=== PATIENT | male | born 1975 | race Caucasian/White ===

== ENCOUNTER → 2016-11-22 | Outpatient (CLI) | payer OTHER ==
--- NOTE | 2016-11-22 14:53 | MR ---
EXAMINATION TYPE: MR thoracic spine wo con DATE OF EXAM: 11/22/2016 COMPARISON: NONE HISTORY: 41-year-old male pain thoracic spine TECHNIQUE: Multiplanar, multisequence images of the thoracic spine were obtained without IV contrast. FINDINGS: There is minimal disc desiccation from T7 through T10 levels. No focal disc herniation or significant disc space narrowing. There is mild facet arthropathy in the upper thoracic spine causing mild narrowing of the right T1-T2 neuroforamen. Vertebral body heights are preserved and alignment is maintained. There is normal course, caliber, and signal intensity of the thoracic cord. Conus medullaris is tammie l. No significant spinal canal stenosis. No neuroforaminal compromise. No prevertebral or paravertebral soft tissue abnormality seen. IMPRESSION: Minimal early disc desiccation in the lower thoracic spine. There is also minimal facet arthropathy i n the upper thoracic spine. No focal disc herniation or significant spinal canal or neural foraminal stenosis.
== END | disposition home or self-care (01) ==
LOC: RADMRIMAIN 11:50
PROVIDERS: ATTEND Family Medicine
DX: M51.34 Other intervertebral disc degeneration, thoracic region (principal); M46.84 Other specified inflammatory spondylopathies, thoracic region
CPT/HCPCS: 72146

== ENCOUNTER 2020-09-01 15:12 | Inpatient (IN) | payer OTHER ==
[2020-09-01] MEDS ORDERED: SODIUM CHLORIDE 0.9% 500 ML 500 ML IV STA (15:33)
--- NOTE | 2020-09-01 15:51 | ED ---
General Adult HPI - General Chief complaint: Shortness of Breath Stated complaint: SOB Time Seen by Provider: 09/01/20 15:18 Source: patient, RN notes reviewed, old records reviewed Mode of arrival: wheelchair Limitations: no limitations - History of Present Illness Initial comments: 45 yo male presenting for evaluation of cough and dyspnea. Patient was diagnosed with coronavirus approximately 3 weeks ago. He has had persistent cough and dyspnea throughout and was sent in by his primary care physician today for rule out pulmonary embolism. He does deny current fevers. He states he's had persistent nausea and vomiting as well as diarrhea. He also complains of left calf pain. - Related Data Home Medications Medication Instructions Recorded Confirmed Albuterol Inhaler [Ventolin Hfa 2 puff INHALATION RT-Q4H 09/01/20 09/01/20 Inhaler] Atorvastatin [Lipitor] 20 mg PO HS 09/01/20 09/01/20 Fluticasone Propionate [Flovent 2 puff INHALATION RT-BID 09/01/20 09/01/20 Hfa 44 mcg] lisinopriL 20 mg PO BID 09/01/20 09/01/20 Allergies Allergy/AdvReac Type Severity Reaction Status Date / Time naproxen [From Naprosyn] Allergy LIPS NUMB Verified 09/01/20 16:52 Review of Systems ROS Statement: Those systems with pertinent positive or pertinent negative responses have been documented in the HPI. ROS Other: All systems not noted in ROS Statement are negative. Past Medical History Past Medical History: No Reported History Additional Past Medical History / Comment(s): Covid 08/13/20 History of Any Multi-Drug Resistant Organisms: None Reported Past Surgical History: No Surgical Hx Reported Past Psychological History: No Psychological Hx Reported Smoking Status: Never smoker Past Alcohol Use History: None Reported Past Drug Use History: None Reported General Exam Limitations: no limitations General appearance: alert, in no apparent distress Head exam: Present: atraumatic, normocephalic Eye exam: Present: normal appearance, PERRL ENT exam: Present: normal exam Neck exam: Present: normal inspection, tenderness. Absent: meningismus Respiratory exam: Present: normal lung sounds bilaterally. Absent: respiratory distress, wheezes, rales Cardiovascular Exam: Present: regular rate, normal rhythm GI/Abdominal exam: Present: soft. Absent: distended, tenderness, guarding, rebound Extremities exam: Present: normal inspection, normal capillary refill. Absent: calf tenderness Back exam: Present: normal inspection Neurological exam: Present: alert, oriented X3, CN II-XII intact. Absent: motor sensory deficit Psychiatric exam: Present: normal affect, normal mood Skin exam: Present: warm, dry, intact. Absent: cyanosis, diaphoretic Course Vital Signs 09/01/20 09/01/20 09/01/20 15:12 16:00 16:02 Temperature 98.3 F Pulse Rate 106 H 96 86 Respiratory 22 23 18 Rate Blood Pressure 147/53 124/79 O2 Sat by Pulse 98 96 97 Oximetry 09/01/20 16:30 Temperature Pulse Rate 98 Respiratory 23 Rate Blood Pressure 120/83 O2 Sat by Pulse 99 Oximetry - Reevaluation(s) Reevaluation #1: 09/01/20 16:53 Ultrasound of the left leg pending, echo has been ordered and results pending. EKG Findings - EKG Comments: EKG Findings:: EKG: Normal sinus rhythm, rate of 87, ND interval 150, QRS duration 82, QTC 447, no ST segment elevation, there is T-wave inversion in lead 3. Medical Decision Making - Medical Decision Making 45-year-old male with dyspnea, sent in by primary care physician for rule out pulmonary embolism. Patient does receive CT angiography which shows a moderate burden of pulmonary emboli. Bilateral. Patient has normal CBC, normal CMP, negative troponin. Echo has been ordered in addition to the left leg ultrasound. Patient started on high-dose heparin. He will be admitted to internal medicine with pulmonology and vascular surgery on consult. - Lab Data Result diagrams: 09/01/20 15:39 09/01/20 15:39 Lab Results 09/01/20 09/01/20 09/01/20 Range/Units 15:39 15:39 15:39 WBC 9.6 (3.8-10.6) k/uL RBC 5.40 (4.30-5.90) m/uL Hgb 16.4 (13.0-17.5) gm/dL Hct 47.1 (39.0-53.0) % MCV 87.1 (80.0-100.0) fL MCH 30.3 (25.0-35.0) pg MCHC 34.8 (31.0-37.0) g/dL RDW 13.1 (11.5-15.5) % Plt Count 291 (150-450) k/uL MPV 6.6 Neutrophils % 73 % Lymphocytes % 17 % Monocytes % 7 % Eosinophils % 2 % Basophils % 1 % Neutrophils # 7.0 (1.3-7.7) k/uL Lymphocytes # 1.6 (1.0-4.8) k/uL Monocytes # 0.7 (0-1.0) k/uL Eosinophils # 0.2 (0-0.7) k/uL Basophils # 0.1 (0-0.2) k/uL PT 10.3 (9.0-12.0) sec INR 1.0 (<1.2) APTT 23.4 (22.0-30.0) sec Sodium 138 (137-145) mmol/L Potassium 4.3 (3.5-5.1) mmol/L Chloride 105 (98-107) mmol/L Carbon Dioxide 23 (22-30) mmol/L Anion Gap 10 mmol/L BUN 16 (9-20) mg/dL Creatinine 0.84 (0.66-1.25) mg/dL Est GFR (CKD-EPI)AfAm >90 (>60 ml/min/1.73 sqM) Est GFR (CKD-EPI)NonAf >90 (>60 ml/min/1.73 sqM) Glucose 94 (74-99) mg/dL Calcium 9.5 (8.4-10.2) mg/dL Total Bilirubin 0.6 (0.2-1.3) mg/dL AST 36 (17-59) U/L ALT 47 (4-49) U/L Alkaline Phosphatase 122 (38-126) U/L Troponin I (0.000-0.034) ng/mL Total Protein 7.7 (6.3-8.2) g/dL Albumin 4.4 (3.5-5.0) g/dL 09/01/20 Range/Units 15:39 WBC (3.8-10.6) k/uL RBC (4.30-5.90) m/uL Hgb (13.0-17.5) gm/dL Hct (39.0-53.0) % MCV (80.0-100.0) fL MCH (25.0-35.0) pg MCHC (31.0-37.0) g/dL RDW (11.5-15.5) % Plt Count (150-450) k/uL MPV Neutrophils % % Lymphocytes % % Monocytes % % Eosinophils % % Basophils % % Neutrophils # (1.3-7.7) k/uL Lymphocytes # (1.0-4.8) k/uL Monocytes # (0-1.0) k/uL Eosinophils # (0-0.7) k/uL Basophils # (0-0.2) k/uL PT (9.0-12.0) sec INR (<1.2) APTT (22.0-30.0) sec Sodium (137-145) mmol/L Potassium (3.5-5.1) mmol/L Chloride (98-107) mmol/L Carbon Dioxide (22-30) mmol/L Anion Gap mmol/L BUN (9-20) mg/dL Creatinine (0.66-1.25) mg/dL Est GFR (CKD-EPI)AfAm (>60 ml/min/1.73 sqM) Est GFR (CKD-EPI)NonAf (>60 ml/min/1.73 sqM) Glucose (74-99) mg/dL Calcium (8.4-10.2) mg/dL Total Bilirubin (0.2-1.3) mg/dL AST (17-59) U/L ALT (4-49) U/L Alkaline Phosphatase (38-126) U/L Troponin I <0.012 (0.000-0.034) ng/mL Total Protein (6.3-8.2) g/dL Albumin (3.5-5.0) g/dL Critical Care Time Critical Care Time: Yes Total Critical Care Time: 35 Disposition Clinical Impression: Pulmonary embolism Disposition: ADMITTED IP TO THIS [facility] Condition: Stable Is patient prescribed a controlled substance at d/c from ED?: No Referrals: Dex Landon DO [Primary Care Provider] - 1-2 days Decision to Admit Reason: Admit from EC Decision Date: 09/01/20 Decision Time: 16:55
[2020-09-01 15:53] LABS: Basophils # (A) 0.1 k/uL (0-0.2); Basophils % (A) 1 %; Eosinophils # (A) 0.2 k/uL (0-0.7); Eosinophils % (A) 2 %; HCT 47.1 % (39.0-53.0); HGB 16.4 gm/dL (13.0-17.5); Lymphocytes # (A) 1.6 k/uL (1.0-4.8); Lymphocytes % (A) 17 %; MCH 30.3 pg (25.0-35.0); MCHC 34.8 g/dL (31.0-37.0); MCV 87.1 fL (80.0-100.0); Mean Platelet Volume 6.6; Monocytes # (A) 0.7 k/uL (0-1.0); Monocytes % (A) 7 %; Neutrophils % (A) 73 %; Platelet Count 291 k/uL (150-450); RDW 13.1 % (11.5-15.5); WBC 9.6 k/uL (3.8-10.6)
[2020-09-01 16:08] LABS: Partial Thromboplastin Time 23.4 sec (22.0-30.0); Prothrombin Time 10.3 sec (9.0-12.0)
[2020-09-01 16:10] LABS: ALT 47 U/L (4-49); AST 36 U/L (17-59); African American GFR (CKD) >90 (>60 ml/min/1.73 sqM); Albumin 4.4 g/dL (3.5-5.0); Alkaline Phosphatase 122 U/L (38-126); Anion Gap 10 mmol/L; Blood Urea Nitrogen 16 mg/dL (9-20); Calcium 9.5 mg/dL (8.4-10.2); Carbon Dioxide 23 mmol/L (22-30); Chloride 105 mmol/L (98-107); Glucose 94 mg/dL (74-99); Non-African American GFR(CKD) >90 (>60 ml/min/1.73 sqM); Potassium 4.3 mmol/L (3.5-5.1); Sodium 138 mmol/L (137-145); Total Bilirubin 0.6 mg/dL (0.2-1.3); Total Protein 7.7 g/dL (6.3-8.2)
[2020-09-01] MEDS ORDERED: HEPARIN SODIUM 1,000 UN/ML (10ML VL) IV ONE (16:43)
[2020-09-01] MEDS ORDERED: HEPARIN SODIUM 1,000 UN/ML (10ML VL) IV PRN (16:43)
--- NOTE | 2020-09-01 16:43 | CT ---
EXAMINATION TYPE: CT angio chest DATE OF EXAM: 09/01/2020 COMPARISON: None HISTORY: 45-year-old male Shortness of breath, assess for PE. TECHNIQUE: Contiguous axial scanning of the chest performed with IV Contrast, patient injected with 1 00 mL of Isovue 370. Coronal/sagittal MIP reconstructions performed. CT DLP: 612.3 mGycm Automated exposure control for dose reduction was used. FINDINGS: Heart normal size without pericardial effusion. No flattening of the interventricular septum or reflu x of contrast into the hepatic veins. Aorta normal caliber with conventional branching anatomy. A few nonenlarged and borderline-sized mediastinal lymph nodes measuring up to 1 cm. Exam is positive for bilateral pulmonary emboli involving lobar, segmental, subsegmental branches of the left lower lobe and also the lingula. Also involved are branches throughout the right lower lobe. Very minimal patchy peripheral groundglass changes anterior left midlung and periphery of the left lo wer lobe. There is a trace left effusion and more focal subpleural masslike opacity measuring 2.3 cm the peripheral left base. Nonspecific 5 mm right lower lung pulmonary nodule, axial image 60. Visualized upper abdomen shows no gross abnormality. Bones: No osseous destructive process. IMPRESSION: 1. EXAM POSITIVE FOR PULMONARY EMBOLI WITH MODERATE OVERALL BURDEN EXTENDING THROUGH LOBAR AND MORE D ISTAL ARTERIAL BRANCHES OF THE BILATERAL LOWER LOBES AND LINGULA. NO CT EVIDENCE OF RIGHT HEART STRAI N AT THIS TIME. 2. A MASSLIKE SUBPLEURAL OPACITY AT THE LEFT BASE MEASURES 2.3 CM. KOEHLER'S HUMP/PULMONARY INFARCT I S SUSPECTED. FOLLOW-UP IN 3 MONTHS TO REASSESS. THE 5 MM RIGHT LOWER LUNG PULMONARY NODULE SHOULD ALS O BE REASSESSED AT THAT TIME. 3. SOME MINIMAL PATCHY PERIPHERAL GROUNDGLASS ANTERIOR LEFT MIDLUNG AND PERIPHERAL LEFT LOWER LOBE. F INDINGS MAY REFLECT EARLY OR RESIDUAL COVID PNEUMONIA CHANGES. ADDITIONAL TRACE LEFT EFFUSION. Clinical findings called to Dr. Prado in the ER at 4:38 PM.
[2020-09-01] MEDS ORDERED: NALOXONE 0.4 MG/ML 1 ML VIAL IV PRN (16:52)
[2020-09-01] MEDS ORDERED: ACETAMINOPHEN TAB 325 MG TAB PO PRN (16:52)
[2020-09-01] MEDS: HEPARIN SOD,PORK IN 0.45% NACL 25,000 UNIT in 0.45% NACL 1 250ML.BAG IV SCH (16:57)
[2020-09-01] MEDS: SODIUM CHLORIDE 0.9% 1,000 ML IV SCH (17:05)
--- NOTE | 2020-09-01 17:30 | US ---
EXAMINATION TYPE: US venous doppler duplex LE LT DATE OF EXAM: 09/01/2020 5:13 PM COMPARISON: None CLINICAL HISTORY: DVT?. Recent Covid x few weeks ago. PE. Calf pain radiating to thigh. No redness or swelling. SIDE PERFORMED: Left TECHNIQUE: The lower extremity deep venous system is examined utilizing real time linear array sonog jamarcus with graded compression, doppler sonography and color-flow sonography. VESSELS IMAGED: Common Femoral Vein Deep Femoral Vein Greater Saphenous Vein * Femoral Vein Popliteal Vein (* superficial vessels) Left Leg: The common femoral vein, deep femoral vein, and greater saphenous vein are patent and comp ressible. There is incompletely occlusive deep venous thrombosis of the proximal, mid, and distal fem oral vein. There appears to be a duplicated popliteal vein, one of which demonstrates incompletely oc clusive deep venous thrombosis. The other popliteal vein appears patent. IMPRESSION: Incompletely occlusive DVT of the left femoral vein and popliteal vein as above.
--- NOTE | 2020-09-01 18:31 | P.GSCN ---
History of Present Illness Consult date: 09/01/20 History of present illness: León is a 45-year-old male who is essentially otherwise healthy who was diagnosed with coronavirus approximately 3 weeks ago. He has been feeling very weak overall having some issues with pain with deep inspiration as well as shortness of breath. He also complains of some leg pain in his left lower extremity. He denies any previous histories of blood clot that he is aware of. He denies any long travel, previous surgeries or traumas. Past Medical History Past Medical History: No Reported History Additional Past Medical History / Comment(s): Covid 08/13/20 History of Any Multi-Drug Resistant Organisms: None Reported Past Surgical History: No Surgical Hx Reported Past Psychological History: No Psychological Hx Reported Smoking Status: Never smoker Past Alcohol Use History: None Reported Past Drug Use History: None Reported Medications and Allergies Home Medications Medication Instructions Recorded Confirmed Type Albuterol Inhaler [Ventolin Hfa 2 puff INHALATION RT-Q4H 09/01/20 09/01/20 History Inhaler] Atorvastatin [Lipitor] 20 mg PO HS 09/01/20 09/01/20 History Fluticasone Propionate [Flovent 2 puff INHALATION RT-BID 09/01/20 09/01/20 History Hfa 44 mcg] lisinopriL 20 mg PO BID 09/01/20 09/01/20 History Allergies Allergy/AdvReac Type Severity Reaction Status Date / Time naproxen [From Naprosyn] Allergy LIPS NUMB Verified 09/01/20 16:52 Surgical - Exam Vital Signs Temp Pulse Resp BP Pulse Ox 98.3 F 106 H 22 147/53 98 09/01/20 15:12 09/01/20 15:12 09/01/20 15:12 09/01/20 15:12 09/01/20 15:12 Gen. is a pleasant cooperative male in no acute distress. Resting comfortably. Breathing room air. HEENT is normocephalic, atraumatic, extraocular motion intact. Neck is supple. Trachea is midline. Heart is tachycardic but regular otherwise. Lungs are clear bilaterally. Abdomen is soft, obese, nontender nondistended. Extremity show no clubbing cyanosis or significant edema. He has trouble radial, femoral and dorsalis pedis pulses bilaterally. Normal mood and affect. Cranial nerves II through XII grossly intact. Results CT angiogram of the chest is reviewed. Moderate distal embolic burden in the bilateral pulmonary arteries. No evidence of right heart strain as visualized on computed tomography scan. Ultrasound of the left lower extremity is reviewed. - Labs 09/01/20 15:39 09/01/20 15:39 Diabetes panel 09/01/20 Range/Units 15:39 Sodium 138 (137-145) mmol/L Potassium 4.3 (3.5-5.1) mmol/L Chloride 105 (98-107) mmol/L Carbon Dioxide 23 (22-30) mmol/L BUN 16 (9-20) mg/dL Creatinine 0.84 (0.66-1.25) mg/dL Glucose 94 (74-99) mg/dL Calcium 9.5 (8.4-10.2) mg/dL AST 36 (17-59) U/L ALT 47 (4-49) U/L Alkaline Phosphatase 122 (38-126) U/L Total Protein 7.7 (6.3-8.2) g/dL Albumin 4.4 (3.5-5.0) g/dL Calcium panel 09/01/20 Range/Units 15:39 Calcium 9.5 (8.4-10.2) mg/dL Albumin 4.4 (3.5-5.0) g/dL Pituitary panel 09/01/20 Range/Units 15:39 Sodium 138 (137-145) mmol/L Potassium 4.3 (3.5-5.1) mmol/L Chloride 105 (98-107) mmol/L Carbon Dioxide 23 (22-30) mmol/L BUN 16 (9-20) mg/dL Creatinine 0.84 (0.66-1.25) mg/dL Glucose 94 (74-99) mg/dL Calcium 9.5 (8.4-10.2) mg/dL Adrenal panel 09/01/20 Range/Units 15:39 Sodium 138 (137-145) mmol/L Potassium 4.3 (3.5-5.1) mmol/L Chloride 105 (98-107) mmol/L Carbon Dioxide 23 (22-30) mmol/L BUN 16 (9-20) mg/dL Creatinine 0.84 (0.66-1.25) mg/dL Glucose 94 (74-99) mg/dL Calcium 9.5 (8.4-10.2) mg/dL Total Bilirubin 0.6 (0.2-1.3) mg/dL AST 36 (17-59) U/L ALT 47 (4-49) U/L Alkaline Phosphatase 122 (38-126) U/L Total Protein 7.7 (6.3-8.2) g/dL Albumin 4.4 (3.5-5.0) g/dL Assessment and Plan Assessment: Bilateral pulmonary embolism Left lower extremity DVT Recent COVID diagnosis Plan: At this time the patient is on heparin which should be continued. The echo is pending. He does not have any elevation of his troponins nor any features of significant right heart strain on computed tomography scan. If normal-appearing echocardiogram, he may be transitioned over to oral anticoagulation within the next 24-48 hours and checked for coverage. No restrictions from my standpoint. Activity as tolerated.
[2020-09-02] MEDS ORDERED: ALBUTEROL HFA INHALER INHALATION SCH
[2020-09-02] MEDS: HEPARIN SOD,PORK IN 0.45% NACL 25,000 UNIT in 0.45% NACL 1 250ML.BAG IV SCH (06:56)
[2020-09-02] MEDS: ALBUTEROL HFA INHALER INHALATION SCH ×4 (08:15→21:24)
[2020-09-02] MEDS: FAMOTIDINE 20 MG/2 ML VIAL IV SCH ×2 (08:39→20:40)
[2020-09-02] MEDS: lisinopriL 20 MG TAB PO SCH (08:39)
[2020-09-02] MEDS: FLUTICASONE 44 MCG INHALER INHALATION SCH ×2 (08:41→21:25)
[2020-09-02 09:14] LABS: Basophils # (A) 0.1 k/uL (0-0.2); Basophils % (A) 1 %; Eosinophils # (A) 0.1 k/uL (0-0.7); Eosinophils % (A) 2 %; HGB 15.2 gm/dL (13.0-17.5); Lymphocytes # (A) 1.9 k/uL (1.0-4.8); Lymphocytes % (A) 23 %; MCH 29.5 pg (25.0-35.0); MCHC 33.7 g/dL (31.0-37.0); MCV 87.6 fL (80.0-100.0); Mean Platelet Volume 6.5; Monocytes # (A) 0.6 k/uL (0-1.0); Monocytes % (A) 8 %; Neutrophils # (A) 5.6 k/uL (1.3-7.7); Neutrophils % (A) 66 %; Platelet Count 271 k/uL (150-450); RBC 5.14 m/uL (4.30-5.90); WBC 8.5 k/uL (3.8-10.6)
[2020-09-02 09:19] VITALS: BMI 40.8
--- NOTE | 2020-09-02 16:56 | P.CNPUL ---
History of Present Illness Consult date: 09/02/20 Requesting physician: Bernard Ricardo Reason for consult: pulmonary embolism Chief complaint: Shortness of breath History of present illness: This is a 45-year-old white male diagnosed with dillon virus infection about 3 weeks ago. Patient had follow-up with his primary care physician, and he was complaining of persistent shortness of breath. Patient underwent CT angiogram of the chest upon presentation to the ER, and he was found to have bilateral pulmonary embolism. Patient was admitted and this consult was initiated. CT of the chest continued to show very minimal patchy peripheral groundglass changes quite consistent with recent COVID-19 pneumonia. There was also evidence of tr ellis of left effusion. Clinically the patient is complaining of shortness of breath on exertion, intermittent cough, no wheezing, no fever, no chills, no hemoptysis, most of his symptoms related to COVID-19 infection has resolved except for cough. Patient is receiving heparin, and I will go ahead and transition the patient to Xarelto, possibly discharging the patient home in the next 24 hours. Review of Systems Constitutional: Negative Cardiac: Negative Pulmonary: As noted in HPI. GI: Negative Genitourinary: Negative Muscular skeletal: Negative Skin: Negative Urologic: Negative Endocrine: Negative Hematologic: No previous history of hypercoagulable state DVT or thrombus embolic disease. No clotting bleeding or bruising in the past. Psychiatric: Negative Neurologic: Negative. Past Medical History Past Medical History: Hypertension Additional Past Medical History / Comment(s): Covid 08/13/20 History of Any Multi-Drug Resistant Organisms: None Reported Past Surgical History: No Surgical Hx Reported Past Anesthesia/Blood Transfusion Reactions: No Reported Reaction Past Psychological History: No Psychological Hx Reported Smoking Status: Never smoker Past Alcohol Use History: None Reported Past Drug Use History: None Reported - Past Family History Mother Family Medical History: Cancer Medications and Allergies Home Medications Medication Instructions Recorded Confirmed Type Albuterol Inhaler [Ventolin Hfa 2 puff INHALATION RT-Q4H 09/01/20 09/01/20 History Inhaler] Atorvastatin [Lipitor] 20 mg PO HS 09/01/20 09/01/20 History Fluticasone Propionate [Flovent 2 puff INHALATION RT-BID 09/01/20 09/01/20 History Hfa 44 mcg] lisinopriL 20 mg PO BID 09/01/20 09/01/20 History Rivaroxaban [Xarelto Starter Pack] 0 mg PO DIRECTED 30 Days #1 pack 09/02/20 Rx Allergies Allergy/AdvReac Type Severity Reaction Status Date / Time naproxen [From Naprosyn] Allergy LIPS NUMB Verified 09/01/20 16:52 Physical Exam Vitals: Vital Signs Temp Pulse Pulse Resp BP BP Pulse Ox 09/02/20 14:00 16 09/02/20 12:00 98.2 F 72 16 118/72 95 09/02/20 08:00 98.4 F 79 16 120/70 94 L 09/02/20 04:00 98.5 F 70 16 117/76 96 09/02/20 00:00 98.3 F 77 16 127/79 98 09/01/20 23:59 98.2 F 77 16 127/79 98 09/01/20 22:38 75 18 101/64 98 09/01/20 18:15 101 H 18 120/85 98 Intake and Output 09/02/20 09/02/20 09/02/20 06:59 14:59 22:59 Intake Total 238.409 315 Output Total 200 900 200 Balance 38.409 -585 -200 Intake: Intake, IV Titration 238.409 Amount Heparin Sod,Pork in 0.45% 238.409 NaCl 25,000 unit In 0.45 % NaCl 1 250ml.bag @ 18 UNITS/KG/HR 19.84 mls/hr IV .[id number] [facility] Rx#: [id number] Oral 315 Output: Urine 200 900 200 Other: Voiding Method Toilet Toilet # Voids 1 # Bowel Movements 1 Weight 111.5 kg 111.5 kg Physical Exam: Revealed a 45-year-old white male in no distress. Head: Atraumatic, normocephalic. HEENT:[Neck is supple.] [No neck masses.] [No thyromegaly.] [No JVD.] Chest: [Clear throughout, no crackles, no rhonchi, no wheezes.] Cardiac Exam: [Normal S1 and S2, no S3 gallop, no murmur.] Abdomen: [Soft, nontender, no megaly, no rebound, no guarding, normal bowel sounds.] Extremities: [No clubbing, no edema, no cyanosis.] Minimal tenderness noted in the left lower extremity just above the left knee. Neurological Exam: [No focal neurologic deficit.] Alert and oriented 3. Psychiatric: Normal mood affect and normal mental status examination. Skin: No rashes. Pharynx: No lymphadenopathy. Results - Laboratory Findings CBC and BMP: 09/02/20 08:43 09/01/20 15:39 PT/INR, D-dimer PT 10.3 sec (9.0-12.0) 09/01/20 15:39 INR 1.0 (<1.2) 09/01/20 15:39 Abnormal lab findings: Abnormal Labs 09/01/20 09/02/20 22:51 08:43 APTT 117.4 H* 51.1 H - Diagnostic Findings CT scan - chest: image reviewed Additional studies: Venous Doppler is also positive for left lower extremity DVT involving the left femoral vein and popliteal vein. Assessment and Plan Assessment: Impression: Acute pulmonary embolism Acute left lower extremity DVT involving left femoral vein and popliteal vein Recent history of COVID-19 pneumonia Hypercoagulable state, mostly provoked by recent COVID-19 infection. History of asthma mild intermittent. History of hypertension Recommendation: ,Transition patient to Xarelto 15 mg twice a day for 21 days then 20 mg daily and he should take it for at least 3-6 months. Resume home meds. Consider discharge planning in the next 24 hours. Follow-up on outpatient basis. Time with Patient: Greater than 30
--- NOTE | 2020-09-02 17:25 | P.HPIM ---
History of Present Illness H&P Date: 09/02/20 Chief Complaint: left leg pain and difficulty in breathing Mr. Sam is a 45-year-old male with the past medical history of hypertension and recently diagnosed with coronal virus infection 3 weeks back coming in to the ER as he was sent by his PCP for persistent difficulty in breathing and left lower extremity pain. Patient states that he has been having pain in his left calf for the past 2-3 days. He was also having some difficulty in breathing with activity. Patient also noticed bloody sputum, streaks of blood 3-4 times in his sputum. He denies having any clots but said streaks of blood. He thought it might be because of his recent covid infection. In the ER patient had a CAT scan of the chest showing bilateral pneumonia showing minimal patchy peripheral groundglass changes along with trace left effusion. He also had left lower extremity Doppler done which was showing incompletely occlusive DVT of the left femoral vein and popliteal vein. So the patient was started on a heparin drip and admitted for further management. On review of systems patient denies having any syncopal episodes, dizziness or weakness in his extremities. No headaches or blurring of vision or speech abnormalities. No sore throat or neck pain. No chest pain or palpitations. No abdominal pain nausea vomiting or diarrhea. Patient had episodes of nausea along with diarrhea that has been resolving. Denies having any dysuria or hematuria. Patient denies having any swelling of his lower extremities. On reviewing the vitals temperature 98.2, heart rate 72, respiratory rate 16, blood pressure 118/72, saturating 95% on room air. His labs from this morning showing white count of 8.5, hemoglobin 15.2, platelets 271. Sodium 138, potassium 4.3, chloride 105, bicarbonate 23, when necessary 16, creatinine 0.84. Troponin less than 0.012. Review of Systems CONSTITUTIONAL: No fever, no malaise, no fatigue. HEENT: No recent visual problems or hearing problems. Denied any sore throat. CARDIOVASCULAR: No orthopnea, PND, no palpitations, no syncope. PULMONARY: As per HPI GASTROINTESTINAL: As per HPI NEUROLOGICAL: No headaches, no weakness, no numbness. HEMATOLOGICAL: Denies any bleeding or petechiae. GENITOURINARY: Denies any burning micturition, frequency, or urgency. MUSCULOSKELETAL/RHEUMATOLOGICAL: Denies any joint pain, swelling, or any muscle pain. ENDOCRINE: Denies any polyuria or polydipsia. Past Medical History Past Medical History: Hypertension Additional Past Medical History / Comment(s): Covid 08/13/20 History of Any Multi-Drug Resistant Organisms: None Reported Past Surgical History: No Surgical Hx Reported Past Anesthesia/Blood Transfusion Reactions: No Reported Reaction Past Psychological History: No Psychological Hx Reported Smoking Status: Never smoker Past Alcohol Use History: None Reported Past Drug Use History: None Reported - Past Family History Mother Family Medical History: Cancer Medications and Allergies Home Medications Medication Instructions Recorded Confirmed Type Albuterol Inhaler [Ventolin Hfa 2 puff INHALATION RT-Q4H 09/01/20 09/01/20 History Inhaler] Atorvastatin [Lipitor] 20 mg PO HS 09/01/20 09/01/20 History Fluticasone Propionate [Flovent 2 puff INHALATION RT-BID 09/01/20 09/01/20 History Hfa 44 mcg] lisinopriL 20 mg PO BID 09/01/20 09/01/20 History Rivaroxaban [Xarelto Starter Pack] 0 mg PO DIRECTED 30 Days #1 pack 09/02/20 Rx Allergies Allergy/AdvReac Type Severity Reaction Status Date / Time naproxen [From Naprosyn] Allergy LIPS NUMB Verified 09/01/20 16:52 Physical Exam Vitals: Vital Signs Temp Pulse Pulse Resp BP BP Pulse Ox 09/02/20 08:00 98.4 F 79 16 120/70 94 L 09/02/20 04:00 98.5 F 70 16 117/76 96 09/02/20 00:00 98.3 F 77 16 127/79 98 09/01/20 23:59 98.2 F 77 16 127/79 98 09/01/20 22:38 75 18 101/64 98 09/01/20 18:15 101 H 18 120/85 98 09/01/20 16:30 98 23 120/83 99 09/01/20 16:02 86 18 97 09/01/20 16:00 96 23 124/79 96 09/01/20 15:12 98.3 F 106 H 22 147/53 98 Intake and Output 09/01/20 09/02/20 09/02/20 22:59 06:59 14:59 Intake Total 238.409 115 Output Total 200 550 Balance 38.409 -435 Intake: Intake, IV Titration 238.409 Amount Heparin Sod,Pork in 0.45% 238.409 NaCl 25,000 unit In 0.45 % NaCl 1 250ml.bag @ 18 UNITS/KG/HR 19.84 mls/hr IV .[id number] [facility] Rx#: [id number] Oral 115 Output: Urine 200 550 Other: Voiding Method Toilet Toilet # Voids 1 Weight 110.223 kg 111.5 kg 111.5 kg GENERAL: The patient is alert and oriented x3, not in any acute distress. Well developed, well nourished. HEENT: Pupils are round and equally reacting to light. EOMI. No scleral icterus. No conjunctival pallor. Normocephalic, atraumatic. No pharyngeal erythema. No thyromegaly. CARDIOVASCULAR: S1 and S2 present. No murmurs, rubs, or gallops. -PULMONARY: Bilateral coarse breath sounds. Diminished at the lower lung bases. No crackles or wheeze. ABDOMEN: Soft, nontender, nondistended, normoactive bowel sounds. No palpable organomegaly. MUSCULOSKELETAL: No joint swelling or deformity. EXTREMITIES: Positive for tenderness in the left calf. No pitting edema. NEUROLOGICAL: Gross neurological examination did not reveal any focal deficits. SKIN: No rashes. No petechiae Results CBC & Chem 7: 09/02/20 08:43 09/01/20 15:39 Labs: Abnormal Lab Results - Last 24 Hours (Table) 09/01/20 09/02/20 Range/Units 22:51 08:43 APTT 117.4 H* 51.1 H (22.0-30.0) sec Thrombosis Risk Factor Assmnt - Choose All That Apply Any of the Below Risk Factors Present?: Yes Each Factor Represents 1 point: Age 41-60 years, Obesity (BMI >25) Thrombosis Risk Factor Assessment Total Risk Factor Score: 2 Thrombosis Risk Factor Assessment Level: Low Risk Assessment and Plan Assessment: ASSESSMENT Acute bilateral pulmonary embolism Acute left lower extremity DVT Recent history of COVID-19 3 weeks back Hypertension History of mild intermittent asthma PLAN: Patient was initially started on heparin drip and changed to Xarelto this morning. Will check for coverage of Xarelto . Patient's saturations have been above 90 on room air. He has been restarted on home on home medications lisinopril and Lipitor. Anticipate discharge in the next 24 hours.
[2020-09-02] MEDS: RIVAROXABAN 15 MG TAB PO SCH (17:33)
[2020-09-02] MEDS: SODIUM CHLORIDE 0.9% 1,000 ML IV SCH (17:33)
[2020-09-02] MEDS ORDERED: ATORVASTATIN 20 MG TAB PO SCH (21:00)
[2020-09-03] MEDS: lisinopriL 20 MG TAB PO SCH ×2 (01:45→07:49)
[2020-09-03 05:09] VITALS: RESP 18
[2020-09-03] MEDS: RIVAROXABAN 15 MG TAB PO SCH (06:23)
[2020-09-03] MEDS: FAMOTIDINE 20 MG/2 ML VIAL IV SCH (07:50)
[2020-09-03 08:00] VITALS: TEMP 98
[2020-09-03] MEDS: FLUTICASONE 44 MCG INHALER INHALATION SCH (08:12)
[2020-09-03] MEDS: ALBUTEROL HFA INHALER INHALATION SCH ×2 (08:12→11:48)
[2020-09-03 08:53] LABS: Basophils # (A) 0.1 k/uL (0-0.2); Basophils % (A) 1 %; Eosinophils # (A) 0.1 k/uL (0-0.7); Eosinophils % (A) 2 %; HCT 47.1 % (39.0-53.0); HGB 16.1 gm/dL (13.0-17.5); Lymphocytes # (A) 1.4 k/uL (1.0-4.8); Lymphocytes % (A) 19 %; MCH 29.9 pg (25.0-35.0); MCHC 34.1 g/dL (31.0-37.0); MCV 87.6 fL (80.0-100.0); Mean Platelet Volume 6.4; Monocytes # (A) 0.3 k/uL (0-1.0); Monocytes % (A) 4 %; Neutrophils # (A) 5.4 k/uL (1.3-7.7); Neutrophils % (A) 73 %; Platelet Count 319 k/uL (150-450); RBC 5.38 m/uL (4.30-5.90); WBC 7.3 k/uL (3.8-10.6)
[2020-09-03 10:31] LABS: African American GFR (CKD) >90 (>60 ml/min/1.73 sqM); Anion Gap 8 mmol/L; Blood Urea Nitrogen 13 mg/dL (9-20); Calcium 9.5 mg/dL (8.4-10.2); Carbon Dioxide 26 mmol/L (22-30); Chloride 104 mmol/L (98-107); Glucose 126 mg/dL (74-99); Non-African American GFR(CKD) >90 (>60 ml/min/1.73 sqM); Potassium 4.5 mmol/L (3.5-5.1); Sodium 138 mmol/L (137-145)
[2020-09-03 13:17] VITALS: BP 123/82; PULSE 86
--- NOTE | 2020-09-03 15:38 | P.PN ---
Subjective Progress Note Date: 09/03/20 Principal diagnosis: Acute pulmonary embolism and DVT This is a 45-year-old white male diagnosed with dillon virus infection about 3 weeks ago. Patient had follow-up with his primary care physician, and he was complaining of persistent shortness of breath. Patient underwent CT angiogram of the chest upon presentation to the ER, and he was found to have bilateral pulmonary embolism. Patient was admitted and this consult was initiated. CT of the chest continued to show very minimal patchy peripheral groundglass changes quite consistent with recent COVID-19 pneumonia. There was also evidence of trace of left effusion. Clinically the patient is complaining of shortness of breath on exertion, intermittent cough, no wheezing, no fever, no chills, no hemoptysis, most of his symptoms related to COVID-19 infection has resolved except for cough. Patient is receiving heparin, and I will go ahead and transition the patient to Xarelto, possibly discharging the patient home in the next 24 hours. Reevaluated today on 09/03/2020, patient is doing great, he was transitioned to oral anticoagulation therapy, he is on room air, denies any shortness of breath cough or wheezing no hemoptysis and no chest pain. He is afebrile and his vital signs are stable. Objective - Vital Signs Vital signs: Vital Signs Temp 98.0 F 09/03/20 07:53 Pulse 86 09/03/20 14:00 Resp 18 09/03/20 14:00 BP 123/82 09/03/20 12:00 Pulse Ox 96 09/03/20 12:00 Intake & Output 09/02/20 09/03/20 09/03/20 18:59 06:59 18:59 Intake Total 665 410 Output Total 1100 300 Balance -435 -300 410 Weight 111.5 kg 111 kg Intake: Oral 665 410 Output: Urine 1100 300 Other: Voiding Method Toilet Toilet Toilet # Voids 1 # Bowel Movements 1 - Exam Physical Exam: Revealed a 45-year-old white male in no distress. Head: Atraumatic, normocephalic. HEENT:[Neck is supple.] [No neck masses.] [No thyromegaly.] [No JVD.] Chest: [Clear throughout, no crackles, no rhonchi, no wheezes.] Cardiac Exam: [Normal S1 and S2, no S3 gallop, no murmur.] Abdomen: [Soft, nontender, no megaly, no rebound, no guarding, normal bowel sounds.] Extremities: [No clubbing, no edema, no cyanosis.] Minimal tenderness noted in the left lower extremity just above the left knee. Neurological Exam: [No focal neurologic deficit.] Alert and oriented 3. Psychiatric: Normal mood affect and normal mental status examination. Skin: No rashes. Pharynx: No lymphadenopathy. - Labs CBC & Chem 7: 09/03/20 08:24 09/03/20 08:24 Labs: Abnormal Lab Results - Last 24 Hours (Table) 09/03/20 09/03/20 Range/Units 08:24 08:24 APTT 31.0 H (22.0-30.0) sec Glucose 126 H (74-99) mg/dL Assessment and Plan Assessment: Impression: Acute pulmonary embolism Acute left lower extremity DVT involving left femoral vein and popliteal vein Recent history of COVID-19 pneumonia Hypercoagulable state, mostly provoked by recent COVID-19 infection. History of asthma mild intermittent. History of hypertension Recommendation: Patient to be discharged home on oral anticoagulation therapy for 3-6 months. Follow-up on outpatient basis. Resume home meds. Clear to be discharged home today Time with Patient: Less than 30
--- NOTE | 2020-09-07 11:38 | ECHOF ---
Referral Reason: MEASUREMENTS -------- HEIGHT: 165.1 cm WEIGHT: 110.2 kg BP: RVIDd: 2.9 cm (< 3.3) IVSd: 1.6 cm (0.6 - 1.1) LVIDd: 3.8 cm (3.9 - 5.3) LVPWd: 1.6 cm (0.6 - 1.1) IVSs: 2.1 cm LVIDs: 2.4 cm LVPWs: 1.8 cm LAESV Index (A-L): 18.99 ml/m Ao Diam: 3.7 cm (2.0 - 3.7) AV Cusp: 2.7 cm (1.5 - 2.6) MV EXCURSION: 16.594 mm (> 18.000) MV EF SLOPE: 77 mm/s (70 - 150) EPSS: 0.2 cm MV E Pedro: 0.55 m/s MV DecT: 108 ms MV A Pedro: 0.73 m/s MV E/A Ratio: 0.75 FINDINGS -------- Sinus rhythm. This was a technically difficult study with suboptimal views. The left ventricular size is normal. There is moderate concentric left ventricular hypertrophy. O verall left ventricular systolic function is normal with, an EF between 55 - 60 %. The right ventricle is normal in size. Normal LA size by volume 22+/-6 ml/m2. The right atrium was not well visualized. 5.0mg of Lumason was utilized for enhancement of images Interatrial and interventricular septum intact. The aortic valve was not well visualized. There is no evidence of aortic regurgitation. There is no evidence of aortic stenosis. No mitral regurgitation. Unable to estimate RVSP due to inadequate TR jet spectral doppler profile. There is no pulmonic regurgitation present. The aortic root size is normal. IVC Not well visulized. There is no pericardial effusion. CONCLUSIONS -------- 1. The left ventricular size is normal. 2. There is moderate concentric left ventricular hypertrophy. 3. Overall left ventricular systolic function is normal with, an EF between 55 - 60 %. [employer]: Jerrica Gonzalez, [facility]
--- NOTE | 2020-09-12 11:15 | CDI ---
Documentation Clarification Form Date: 09/12/20 From: Kalyn Brown Phone: Admit Date: 09/01/2020 04:52:00 PM Patient Name: León Sam Visit Number: [id number] Discharge Date: 09/03/2020 03:30:00 PM ATTENTION: The Clinical Documentation Specialists (CDI) and [facility] Coding Staff appreciate your assistance in clarifying documentation. Please respond to the clarification below the line at the bottom and electronically sign. The CDI & [facility] Coding staff will review the response and follow-up if needed. Please note: Queries are made part of the Legal Health Record. If you have any questions, please contact the author of this message via ITS. Dr. Tracie Sena, The patient has had a recent episode of COVID-19 infection as documented in the medical record, and now presents with: pulmonary embolism with DVT to left femoral and popliteal veins. Bilateral pneumonia. History/Risk Factors: HTN, mild intermittent asthma, uncomplicated Clinical Indicators: Tested positive for COVID-19 on 08/13/20. He comes in with PE and DVTs of the left leg. Not retested. Treatment: IV Heparin and then discharged on Xarelto Please clarify the current status of the patients COVID-19 infection in the next progress note and/or discharge summary such as: [ ] COVID-19 is not a current infection, and the stated condition is a residual effect/sequelae of COVID-19 [ ] COVID-19 continues to be a current and active infection, and the stated condition is a continuation of its symptoms [ ] Other, please specify [ ] Unable to determine COVID-19 is not a current infection, and the stated condition is a residual effect/sequelae of COVID-19 MTDD
--- NOTE | 2020-09-15 21:44 | P.DS ---
Providers Date of admission: 09/01/20 16:52 Expected date of discharge: 09/03/20 Attending physician: Bernard Ricardo Consults: 09/01/20 16:52 Consult Physician Routine Consulting Provider: Drake Frazier Consult Reason/Comments: PE Do you want consulting provider notified?: Yes Consult Physician Routine Consulting Provider: Priscilla Ballard Consult Reason/Comments: PE Do you want consulting provider notified?: Yes Primary care physician: Dex [facility] Hospital Course: HPI - Mr. Sam is a 45-year-old male with the past medical history of hypertension and recently diagnosed with coronal virus infection 3 weeks back coming in to the ER as he was sent by his PCP for persistent difficulty in breathing and left lower extremity pain. Patient states that he has been having pain in his left calf for the past 2-3 days. He was also having some difficulty in breathing with activity. Patient also noticed bloody sputum, streaks of blood 3-4 times in his sputum. He denies having any clots but said streaks of blood. He thought it might be because of his recent covid infection. In the ER patient had a CAT scan of the chest showing bilateral pulmonary embolism and alos showing minimal patchy peripheral groundglass changes along with trace left effusion. He also had left lower extremity Doppler done which was showing incompletely occlusive DVT of the left femoral vein and popliteal vein. So the patient was started on a heparin drip and admitted for further management. On reviewing the vitals temperature 98.2, heart rate 72, respiratory rate 16, blood pressure 118/72, saturating 95% on room air. His labs from this morning showing white count of 8.5, hemoglobin 15.2, platelets 271. Sodium 138, potassium 4.3, chloride 105, bicarbonate 23, when necessary 16, creatinine 0.84. Troponin less than 0.012. Hospital Course - Patient was initially started on heparin drip and changed to Xarelto. He had an Echo showing no right heart strain. He was followed by Pulmonary and cleared for discharge. His vital remained stable through out. He is being discharged home in a stable condition , to continue with anti coagulation for at least 3-6 months. DISCHARGE DIAGNOSIS Acute bilateral pulmonary embolism Acute left lower extremity DVT Recent history of COVID-19 3 weeks back Hypertension History of mild intermittent asthma Follow up - Advised follow up with his PCP in 2-3 days and Pulmonary in 2-3 weeks. Patient Condition at Discharge: Stable Plan - Discharge Summary Discharge Rx Participant: No New Discharge Prescriptions: New Rivaroxaban [Xarelto Starter Pack] 0 mg PO DIRECTED 30 Days #1 pack No Action lisinopriL 20 mg PO BID Fluticasone Propionate [Flovent Hfa 44 mcg] 2 puff INHALATION RT-BID Albuterol Inhaler [Ventolin Hfa Inhaler] 2 puff INHALATION RT-Q4H Atorvastatin [Lipitor] 20 mg PO HS Discharge Medication List Albuterol Inhaler [Ventolin Hfa Inhaler] 2 puff INHALATION RT-Q4H 09/01/20 [History] Atorvastatin [Lipitor] 20 mg PO HS 09/01/20 [History] Fluticasone Propionate [Flovent Hfa 44 mcg] 2 puff INHALATION RT-BID 09/01/20 [History] lisinopriL 20 mg PO BID 09/01/20 [History] Rivaroxaban [Xarelto Starter Pack] 0 mg PO DIRECTED 30 Days #1 pack 09/02/20 [Rx] Follow up Appointment(s)/Referral(s): Priscilla Ballard MD [STAFF PHYSICIAN] - 2 Weeks ([facility] - please call and make a follow up appointment on Friday. ) Dex Landon DO [Primary Care Provider] - 1-2 days (Please call primary physician on Friday for a follow up appointment. ) Patient Instructions/Handouts: Pulmonary Embolism (DC), Safe Use of Anticoagulants (DC) Discharge Disposition: HOME SELF-CARE
== END 2020-09-03 15:30 | disposition home or self-care (01) | DRG 176 ==
LOC: EC 15:12 → 3SCARD 16:52
PROVIDERS: ADMIT Internal Medicine; ATTEND Internal Medicine
DX: I26.99 Other pulmonary embolism without acute cor pulmonale (principal); D68.59 Other primary thrombophilia; I82.412 Acute embolism and thrombosis of left femoral vein; I82.432 Acute embolism and thrombosis of left popliteal vein; B94.8 Sequelae of other specified infectious and parasitic diseases; I10 Essential (primary) hypertension; J45.20 Mild intermittent asthma, uncomplicated; Z79.51 Long term (current) use of inhaled steroids; Z79.899 Other long term (current) drug therapy; Z88.6 Allergy status to analgesic agent; Z87.01 Personal history of pneumonia (recurrent)
CPT/HCPCS: 36415; 71275; 80048; 80053; 84484; 85025; 85610; 85730; 93005; 93306; 94640; 96360; 99291

== ENCOUNTER → 2020-10-17 | Outpatient (CLI) | payer OTHER ==
--- NOTE | 2020-10-17 15:28 | US ---
EXAMINATION TYPE: US venous doppler duplex LE LT DATE OF EXAM: 10/17/2020 1:09 PM COMPARISON: US 09/01/2020 CLINICAL HISTORY: I82.409 ACUTE EMBOLISM AND THROMBOSIS OF DEEP VEINS. Left leg followup for DVT and PE and taking Xarelto. SIDE PERFORMED: Left TECHNIQUE: The lower extremity deep venous system is examined utilizing real time linear array sonog jamarcus with graded compression, doppler sonography and color-flow sonography. VESSELS IMAGED: Common Femoral Vein Deep Femoral Vein Greater Saphenous Vein * Femoral Vein Popliteal Vein Small Saphenous Vein * Proximal Calf Veins (* superficial vessels) Left Leg: Non occluding DVT left Femoral Vein upper as wall echoes are still present, and occluding DVT in one of 2 Popliteal Veins and upper Calf Veins. IMPRESSION: 1. Deep venous thrombosis within the left lower extremity. This may be progressive into the popliteal and trifurcation vessels.
== END | disposition home or self-care (01) ==
LOC: RADUSWWP 12:40
PROVIDERS: ATTEND Family Medicine
DX: I82.412 Acute embolism and thrombosis of left femoral vein (principal); I82.432 Acute embolism and thrombosis of left popliteal vein; I82.462 Acute embolism and thrombosis of left calf muscular vein

== ENCOUNTER → 2021-06-08 | Outpatient (CLI) | payer OTHER ==
--- NOTE | 2021-06-09 08:41 | CT ---
EXAMINATION TYPE: CT chest w con DATE OF EXAM: 06/08/2021 COMPARISON: 09/01/2020 HISTORY: Lung nodule. RONAL. Hx Covid CT DLP: 571.50 mGycm Automated exposure control for dose reduction was used. CONTRAST: CT scan of the chest is performed with IV Contrast, patient injected with 100 mL of Isovue 300. FINDINGS: LUNGS: Masslike density left lateral lung base has resolved. Areas of peripheral nodular infiltrate a lso resolved. Right lower lobe nodule is not redemonstrated. The lungs are currently clear. No effusi on or infiltrate seen. No evidence for volume loss. MEDIASTINUM: There are no greater than 1 cm hilar or mediastinal lymph nodes. No pericardial effusi on is seen. Thoracic aorta is of normal caliber. The heart is not enlarged. UPPER ABDOMEN: No significant abnormality appreciated. OTHER: No additional significant abnormality is seen. IMPRESSION: Resolution of previously noted left lateral basilar lung mass as well as peripheral nodular infiltrat e. The lungs are now clear.
== END | disposition home or self-care (01) ==
LOC: RADCTMAIN 18:54
PROVIDERS: ATTEND Internal Medicine
DX: R91.1 Solitary pulmonary nodule (principal); Z86.16 Personal history of COVID-19
CPT/HCPCS: 71260; Q9967

== ENCOUNTER → 2021-07-25 | Outpatient (CLI) | payer OTHER ==
--- NOTE | 2021-07-25 15:25 | US ---
EXAMINATION TYPE: US venous doppler duplex LE LT DATE OF EXAM: 07/25/2021 3:10 PM COMPARISON: US CLINICAL HISTORY: M79.662 PAIN LEFT LEG. Left leg pain, pt recently taken off of blood thinners from prior DVT left leg SIDE PERFORMED: Left TECHNIQUE: The lower extremity deep venous system is examined utilizing real time linear array sonog jamarcus with graded compression, doppler sonography and color-flow sonography. VESSELS IMAGED: Common Femoral Vein Deep Femoral Vein Greater Saphenous Vein * Femoral Vein Popliteal Vein Small Saphenous Vein * Proximal Calf Veins (* superficial vessels) Left Leg: Negative for DVT Results called to Rafia at 's office at time of exam IMPRESSION: No evidence for DVT at this time.
== END | disposition home or self-care (01) ==
LOC: RADUSWWP 14:50
PROVIDERS: ATTEND Internal Medicine
DX: M79.662 Pain in left lower leg (principal); Z86.718 Personal history of other venous thrombosis and embolism